=== PATIENT | female | born 1995 | race African-American/Black ===

== ENCOUNTER 2017-01-01 06:07 | Inpatient (IN) | payer OTHER ==
[2017-01-01] MEDS ORDERED: BUTORPHANOL TARTRATE 1 MG/ML VIAL IVPUSH ONE ×2 (06:40→10:15)
[2017-01-01] MEDS ORDERED: PROMETHAZINE HCL 25 MG/1 ML VIAL IVPUSH ONE (06:40)
[2017-01-01 08:28] VITALS: BMI 35.5
[2017-01-01 08:42] LABS: BASOPHIL 0.3 % (0-2.0); EOSINOPHIL 0.2 % (0-4.5); MCH 31.2 pg (25.7-33.7); MCHC 33.9 g/dl (32.0-36.0); MEAN PLT VOLUME 8.7 fl (7.5-11.1); PLATELET COUNT 259 K/MM3 (134-434); RDW 14.2 % (11.6-15.6); WHITE BLOOD COUNT 11.6 K/mm3 (4.0-10.0)
[2017-01-01 09:01] LABS: INR 1.05 (0.82-1.09); PROTHROMBIN TIME (PATIENT) 11.9 SEC (9.98-11.88)
[2017-01-01 09:04] LABS: ACTIVATED PTT 26.6 SECONDS (26.9-34.4)
[2017-01-01 09:09] LABS: ANION GAP 9 (8-16); CO2 23 mmol/L (21-32); CREATININE 0.6 mg/dL (0.55-1.02); GLUCOSE,RANDOM 73 mg/dL (74-106)
[2017-01-01] MEDS: ELECTROLYTE-148 SOLN 1,000 ML IV SCH ×3 (10:00→23:45)
[2017-01-01] MEDS ORDERED: PROMETHAZINE HCL 25 MG/1 ML VIAL IVPB ONE (16:30)
[2017-01-01] MEDS ORDERED: LABETALOL HCL 200 MG TABLET (FP) PO ONE (16:30)
[2017-01-01] MEDS ORDERED: BUTORPHANOL TARTRATE 1 MG/ML VIAL IVPB ONE (16:30)
[2017-01-01 17:20] LABS: URINE APPEARANCE CLOUDY; URINE BILIRUBIN NEGATIVE (NEGATIVE); URINE BLOOD 2+ (NEGATIVE); URINE COLOR YELLOW; URINE GLUCOSE (UA) NEGATIVE (NEGATIVE); URINE KETONE 1+ (NEGATIVE); URINE NITRITE NEGATIVE (NEGATIVE); URINE PROTEIN NEGATIVE (NEGATIVE); URINE UROBILINOGEN NEGATIVE mg/dL (0.2-1.0)
[2017-01-01 17:35] LABS: URIC ACID 3.9 mg/dL (2.6-7.2)
[2017-01-01 17:42] LABS: URINE MUCUS RARE; URINE RBC 1 /hpf (0-3); URINE WBC 52 /hpf (3-5)
--- NOTE | 2017-01-01 21:36 | HP ---
Past Medical History - Primary Care Physician PCP:: Reyes Dickson - Admission Chief Complaint: 40.4 weeks, labor History of Present Illness: 21 yo f g1 po 40.4 weeks, c/o contraction, no rom, no bleeding , cx 3 cm 80 vc - 2 mi, fhr cat 1, irregular contraction History Source: Patient Limitations to Obtaining History: No Limitations - Past Medical History ...: 1 ...Para: 0 ...Term: 0 ...: 0 ...Spon : 0 ...Induced : 0 ...Multiple Gestation: 0 ...LMP: 02/26/16 ...EDC by Sono: 12/28/16 - Past Surgical History Hx Myomectomy: No Hx Transabdominal Cerclage: No - Smoking History Smoking history: Never smoked Have you smoked in the past 12 months: No - Alcohol/Substance Use Hx Alcohol Use: No - Social History History of Recent Travel: No Home Medications - Allergies Allergies/Adverse Reactions: Allergies Allergy/AdvReac Type Severity Reaction Status Date / Time No Known Allergies Allergy Verified 01/01/17 08:31 - Home Medications Home Medications: Ambulatory Orders Ferrous Sulfate [Feosol] 325 mg PO DAILY 01/01/17 Vit No.130/Iron/FA [ Tablet] 1 tab PO DAILY 01/01/17 Review of Systems - Review of Systems Constitutional: reports: No Symptoms Eyes: reports: No Symptoms HENT: reports: No Symptoms Neck: reports: No Symptoms Cardiovascular: reports: No Symptoms Respiratory: reports: No Symptoms Gastrointestinal: reports: No Symptoms Genitourinary: reports: No Symptoms Breasts: reports: No Symptoms Reported Integumentary: reports: No Symptoms Neurological: reports: No Symptoms Hematology/Lymphatic: reports: No Symptoms Psychiatric: reports: No Symptoms Physical Exam - Maternity Vital Signs: Vital Signs Temperature 98.6 F 01/01/17 18:00 Pulse Rate 88 01/01/17 21:00 Respiratory Rate 18 01/01/17 21:00 Blood Pressure 123/72 01/01/17 21:00 O2 Sat by Pulse Oximetry (%) Constitutional: Yes: Well Nourished, No Distress, Calm Eyes: Yes: WNL, Conjunctiva Clear, EOM Intact HENT: Yes: WNL, Atraumatic, Normocephalic Neck: Yes: WNL, Supple, Trachea Midline Cardiovascular: Yes: WNL, Regular Rate and Rhythm Breast(s): Yes: WNL - Abdominal Exam/OB Number of Fetuses: Single Presentation: Vertex Contractions: Yes Regularity: Irregular Intensity: Mod/Strong Monitor Mode: External Heart Rate Location: [facility] Category: I Accelerations: Uniform Decelerations: None - Vaginal Exam/OB Speculum Exam: No Dilatation (cm): 3 cm Effacement (%): 80 Amniotic Membrane Status: Intact Presentation: Vertex/Position Station: -2 - Physical Exam Musculoskeletal: Yes: WNL Extremities: Yes: WNL Edema: LLE: Trace, RLE: Trace Deep Tendon Reflex Grade: Normal +2 Psychiatric: Yes: Alert - Labs Lab Results: CBC, BMP 01/01/17 08:30 01/01/17 08:30 Hemorrhage Risk Assessment - Risk Factors Medium Risk Factors: Yes: None High Risk Factors: Yes: None Risk Score: 1 Risk Level: Medium Risk Problem List - Problems (1) Post term over 40 weeks Code(s): O48.0 - POST-TERM (2) Labor established Code(s): [id number] - Assessment/Plan admit, GBS negative , fhr cat 1, fhm, pain management ,
--- NOTE | 2017-01-01 21:37 | PN ---
Progress Note (short form) - Note Progress Note: 7pm srom, cx 6 cm 80 vx -1 clear fluid , fhr cat 1 tracing Problem List - Problems (1) Post term over 40 weeks Code(s): O48.0 - POST-TERM (2) Labor established Code(s): [id number] -
--- NOTE | 2017-01-01 21:38 | PN ---
Progress Note (short form) - Note Progress Note: cx 7 cm 80 vx -1 mr, clear, fhr cat 1 Problem List - Problems (1) Post term over 40 weeks Code(s): O48.0 - POST-TERM (2) Labor established Code(s): [id number] -
[2017-01-01 22:44] LABS: URINE LEUK ESTERASE 2+ (NEGATIVE)
[2017-01-02] MEDS ORDERED: FENTANYL/BUPIVACAINE/NS/PF - PCEA - 50 ML DISP.SYRIN EP SCH (01:15)
--- NOTE | 2017-01-02 01:16 | PN ---
Progress Note (short form) - Note Progress Note: cx 8 cm 100 vx -1 mr , for bag felt arom, fhr cat 1, irregular contraction after receiving epidural , pitocin rba discussed and advised .agreed Problem List - Problems (1) Post term over 40 weeks Code(s): O48.0 - POST-TERM (2) Labor established Code(s): [id number] -
[2017-01-02] MEDS ORDERED: OXYTOCIN 15 UNITS/ LR 250 ML 15 UNIT/250 ML INFUS.BAG IV ONE (01:22)
--- NOTE | 2017-01-02 07:06 | PN ---
Progress Note (short form) - Note Progress Note: 4 .05 am cx 9 cm 100 vx 0 mr , fhr cat 1, contraction regular, scalp electrode applied , palced on LT side Problem List - Problems (1) Post term over 40 weeks Code(s): O48.0 - POST-TERM (2) Labor established Code(s): [id number] -
[2017-01-02] MEDS ORDERED: METHYLERGONOVINE MALEATE 0.2 MG/1 ML AMP IM PRN (08:11)
[2017-01-02] MEDS ORDERED: BENZOCAINE 28 GM HEMORRHOIDAL OINTMENT TP PRN (08:11)
[2017-01-02] MEDS ORDERED: oxyCODONE HCL 5 MG TABLET PO PRN (08:11)
[2017-01-02] MEDS ORDERED: WITCH HAZEL 50% (TUCKS) 40 PAD/JAR PAD TP PRN (08:11)
[2017-01-02] MEDS ORDERED: IBUPROFEN 600 MG TABLET (FP) PO PRN (08:11)
[2017-01-02] MEDS ORDERED: ACETAMINOPHEN 325 MG TABLET (FP) PO PRN (08:11)
[2017-01-02] MEDS ORDERED: BISACODYL 10 MG SUPP.RECT RC PRN (08:11)
[2017-01-02] MEDS ORDERED: BENZOCAINE 20% 57 GM BOTTLE TP PRN (08:11)
[2017-01-02] MEDS ORDERED: OXYTOCIN 20 UNITS in 0.9% NS 20 UNIT/1,000 ML INFUS.BAG IV SCH (08:15)
--- NOTE | 2017-01-02 08:15 | PN ---
Progress Note (short form) - Note Progress Note: cx full head delivered , nasopharynx suctioned ant and post, shoulder with no difficulty , baby girl 9/10. blood,no complication, cord blood gases done , due to thin cord arterial was not sufficient , venous send, i cm vaginal mucosa laceration with one suture of 2.0 chromic, palcenta complete, ebl 300cc Problem List - Problems (1) Post term over 40 weeks Code(s): O48.0 - POST-TERM (2) Labor established Code(s): [id number] -
[2017-01-02 09:02] LABS: VENOUS BLOOD GAS HCO3 22.4 meq/L (19-25); VENOUS PH 7.36 (7.32-7.42)
[2017-01-02] MEDS: PRENATAL VITAMINS W/ FOLIC ACID TABLET (FP) PO SCH (10:16)
[2017-01-02] MEDS: FERROUS SO4 325 MG TABLET (FP) PO SCH ×2 (10:16→21:42)
[2017-01-03 08:18] LABS: BASOPHIL 0.3 % (0-2.0); EOSINOPHIL 0.8 % (0-4.5); MCH 31.3 pg (25.7-33.7); MCHC 33.2 g/dl (32.0-36.0); MEAN CELL VOLUME 94.3 fl (80-96); NEUTROPHILS 74.6 % (42.8-82.8); PLATELET COUNT 214 K/MM3 (134-434); RDW 14.5 % (11.6-15.6); WHITE BLOOD COUNT 14.7 K/mm3 (4.0-10.0)
[2017-01-03] MEDS: PRENATAL VITAMINS W/ FOLIC ACID TABLET (FP) PO SCH (09:52)
[2017-01-03] MEDS: FERROUS SO4 325 MG TABLET (FP) PO SCH ×2 (09:52→21:14)
--- NOTE | 2017-01-03 16:01 | PN ---
Progress Note (short form) - Note Progress Note: ppd 1 doing well, no c/o voids ok CBC, BMP 01/03/17 07:00 01/01/17 08:30 Last Vital Signs Temp Pulse Resp BP Pulse Ox 98.3 F 84 18 114/73 97 01/03/17 14:06 01/03/17 14:06 01/03/17 14:06 01/03/17 14:06 01/02/17 01:00 abdomen soft, uterus rm, non tender no excess vaginal bleeding no calf tenderness plan ambulte. observe Problem List - Problems (1) Post term over 40 weeks Code(s): O48.0 - POST-TERM (2) Labor established Code(s): [id number] -
[2017-01-03] MEDS ORDERED: SENNOSIDES/DOCUSATE COMBO (SENNA PLUS) TABLET (UD) PO PRN (22:00)
--- NOTE | 2017-01-04 08:15 | DS ---
Physical Exam-SURVEY RODMAN Vital Signs: Vital Signs Temperature 98.1 F 01/03/17 19:41 Pulse Rate 97 H 01/03/17 19:41 Respiratory Rate 20 01/03/17 19:41 Blood Pressure 118/74 01/03/17 19:41 O2 Sat by Pulse Oximetry (%) 97 01/02/17 01:00 Constitutional: Yes: Well Nourished, No Distress, Calm Eyes: Yes: WNL, Conjunctiva Clear, EOM Intact HENT: Yes: WNL, Atraumatic, Normocephalic Neck: Yes: WNL, Supple, Trachea Midline Cardiovascular: Yes: WNL, Regular Rate and Rhythm Respiratory: Yes: WNL, Regular, CTA Bilaterally Gastrointestinal: Yes: WNL ...Rectal Exam: Yes: WNL Renal/: Yes: WNL External Genitalia: Yes: Normal ....Post : Yes: Uterus firm, Uterus non-tender, Slight lochia rubra Breast(s): Yes: WNL Musculoskeletal: Yes: WNL Extremities: Yes: WNL Integumentary: Yes: WNL Neurological: Yes: WNL, Alert, Oriented ...Motor Strength: WNL Psychiatric: Yes: WNL, Alert, Oriented Labs: CBC, BMP 01/03/17 07:00 01/01/17 08:30 Delivery - Delivery Vaginal Delivery: Spontaneous (no complication) Type of Anesthesia: Epidural Episiotomy/Laceration: Perineal Extension/lac, 1st degree EBL (cc): 300 Delivery, Single - Stages of Labor Date 1st Stage Initiatied: 01/02/17 Time 1st Stage Initiated: 20:00 Date 2nd Stage Initiated: 01/02/17 Time 2nd Stage Initiated: 07:30 Date of Delivery: 01/02/17 Time of Delivery: 07:56 Time Placenta Delivered: 08:00 - 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 no intercourse, follow up [facility] care 4 weeks, cont pnv Referrals: Reyes Dickson MD [Staff Physician] - Disposition: HOME - Home Medications Comprehensive Discharge Medication List: Ambulatory Orders Ferrous Sulfate [Feosol] 325 mg PO DAILY 01/01/17 Vit No.130/Iron/FA [ Tablet] 1 tab PO DAILY 01/01/17 Ibuprofen [Motrin -] 600 mg PO QID #28 tablet 01/04/17
[2017-01-04] MEDS: PRENATAL VITAMINS W/ FOLIC ACID TABLET (FP) PO SCH (10:14)
[2017-01-04] MEDS: FERROUS SO4 325 MG TABLET (FP) PO SCH (10:14)
[2017-01-04 10:50] VITALS: BP 118/69; PULSE 75; TEMP 97.8
== END 2017-01-04 10:53 | disposition home or self-care (01) | DRG 775 ==
LOC: JDEL 06:07 → JLDR 06:45 → J3W 01-02 09:29
PROVIDERS: ADMIT Obstetrics & Gynecology; ATTEND Obstetrics & Gynecology
PROC: 10E0XZZ Delivery of Products of Conception, External Approach (ICD-10-PCS; principal; 2017-01-02)
PROC: 0W8NXZZ Division of Female Perineum, External Approach (ICD-10-PCS; 2017-01-02)
PROC: 0HQ9XZZ Repair Perineum Skin, External Approach (ICD-10-PCS; 2017-01-02)
DX: O70.0 First degree perineal laceration during delivery (principal); O48.0 Post-term pregnancy; Z3A.40 40 weeks gestation of pregnancy; Z37.0 Single live birth
CPT/HCPCS: 36415; 59409; 80048; 81003; 81015; 82803; 82977; 83010; 84450; 84460; 84550; 85025; 85044; 85610; 85730; 86593; 86850; 86900; 86901

== ENCOUNTER 2018-08-27 07:08 | Inpatient (IN) | payer OTHER ==
[2018-08-27] MEDS ORDERED: PROMETHAZINE HCL 25 MG/1 ML VIAL IVPUSH ONE (08:37)
[2018-08-27] MEDS ORDERED: BUTORPHANOL TARTRATE 1 MG/ML VIAL IVPB ONE (08:37)
[2018-08-27] MEDS ORDERED: ELECTROLYTE-148 SOLN 1,000 ML IV SCH (08:45)
[2018-08-27] MEDS ORDERED: OXYTOCIN 30 UNITS in 0.9% NS 30 UNIT/500 ML INFUS.BAG IVPB SCH (08:45)
[2018-08-27 09:27] VITALS: BMI 32.6
[2018-08-27] MEDS ORDERED: OXYTOCIN 30 UNITS in 0.9% NS 30 UNIT/500 ML INFUS.BAG IVPB ONE (09:38)
[2018-08-27 11:03] LABS: BASO % 0.4 % (0-2.0); HEMATOCRIT 27.4 % (32.4-45.2); HEMOGLOBIN 9.2 GM/dL (10.7-15.3); LYMPH % 23.1 % (8-40); MCH 30.3 pg (25.7-33.7); MCHC 33.6 g/dl (32.0-36.0); MEAN CELL VOLUME 90.1 fl (80-96); MEAN PLT VOLUME 8.9 fl (7.5-11.1); NEUT % 67.5 % (42.8-82.8); RBC 3.04 M/mm3 (3.60-5.2); RDW 14.6 % (11.6-15.6); WHITE BLOOD COUNT 7.8 K/mm3 (4.0-10.0)
[2018-08-27 11:10] LABS: PLATELET COUNT 241 K/MM3 (134-434)
[2018-08-27 11:27] LABS: BLOOD UREA NITROGEN 5.3 mg/dL (7-18); CALCIUM 8.7 mg/dL (8.5-10.1); CREATININE 0.6 mg/dL (0.55-1.3); INR 1.05 (0.83-1.09); POTASSIUM 3.7 mmol/L (3.5-5.1); PROTHROMBIN TIME (PATIENT) 12.4 SEC (9.7-13.0)
[2018-08-27 11:31] LABS: RPR NONREACTIVE (NONREACTIVE)
[2018-08-27] MEDS ORDERED: FENTANYL/BUPIVACAINE/NS/PF - PCEA - 50 ML DISP.SYRIN EP ONE (15:21)
[2018-08-27] MEDS ORDERED: FENTANYL/BUPIVACAINE/NS/PF - PCEA - 50 ML DISP.SYRIN EP SCH ×2 (16:30→18:15)
[2018-08-27] MEDS ORDERED: NALOXONE HCL 0.4 MG/ML VIAL IVPUSH PRN (18:06)
--- NOTE | 2018-08-27 18:24 | HP ---
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: Alzheimer's, CVA, Dementia, Migraine, Multiple Sclerosis, Peripheral Neuropathy, Parkinson's, Seizure, Syncope, TIA, Vertigo, Other Cardiovascular: No: AFIB, Aneurysm, Aortic Insufficiency, Aortic Stenosis, CAD, CHF, Deep Vein Thrombosis, HTN, Hyperlipdemia, [place], Mitral Insufficiency, Mitral Stenosis, Murmur, Pulmonary Hypertension, Other Pulmonary: No: Asthma, Bronchitis, Cancer, COPD, O2 Dependent, Pneumonia, Previously Intubated, Pulmonary Embolus, Pulmonary Fibrosis, Sleep Apnea, Other Gastrointestinal: No: Ascites, Cancer, Constipation, Crohn's Disease, Diverticulitis, Diverticulosis, Esophageal Varices, Gastritis, GERD, GI Bleed, Hemorrhoids, Hiatal Hernia, Inflamatory Bowel Disease, Irritable Bowel Disease, Pancreatitis, Peptic Ulcer Disease, Ulcerative Colitis, Other Hepatobiliary: No: Cirrhosis, Cholelithiasis, Cholecystitis, Choledocholithiasis , Hepatitis A, Hepatitis B, Hepatitis C, Other Renal/: No: Renal Failure, Renal Inusuff, BPH, Cancer, Hematuria, Hemodialysis , Neurogenic Bladder, Renal Calculi, UTI, Other Reproductive: No: Ectopic , Endometriosis, Fibroids, PID, Polycystic Ovary Syndrome, Postmenopausal, Other ...: 2 ...Para: 1 ...Term: 1 ...: 0 ...Spon : 0 ...Induced : 0 ...Multiple Gestation: 0 ... Weeks Gestation by Dates: 41 ...EDC by Kierra: 08/17/18 Heme/Onc: No: Anemia, B12 Deficiency, Bleeding Disorder, Cancer, Current Chemotherapy, Current Radiation Therapy, Hemochromatosis, Hypercoaguable State, Myeloproliferative Synd, Sickle Cell Disease, Sickle Cell Trait, Thrombocytopenia, Other Infectious Disease: No: AIDS, C-Diff, Herpes Zoster, HIV, MRSA, STD's, Tuberculosis, VREF, Other Psych: No: Addictions, Anxiety, Bipolar, Depression, Panic, Psychosis, Schizophrenia, Other Musculoskeletal: No: Bursitis, Chronic low back pain, Hemiparesis, Hemiplegia, Osteoarthritis, Paraplegia, Other Rheumatology: No: Fibromyalgia, Gout, Lupus, Rheumatoid Arthritis, Sarcoidosis, Vasculitis, Other ENT: No: Allergic Rhinitis, Sinusitis, Other Endocrine: No: [place]'s Disease, [place]'s Disease, Diabetes Insipidus, Diabetes Mellitus, Hyperparathyroidism, Hyperthyroidism, Hypothyroidism, Osteopenia, SIADH, Other Dermatology: No: Basal Cell, Cellulitis, Eczema, Melanoma, Psoriasis, Squamous Cell, Other - Past Surgical History Past Surgical History: No: None, AAA Repair, AICD, Amputation, Appendectomy, Arthrosocopy, AV Fistula/Graft, Bariatric Surgery, Breast Biopsy, Bypass, CABG, Carotid Endarterectomy, Cataract Removal, Cholecystectomy, Colectomy, Colonoscopy, Colostomy, Craniotomy, , Cystectomy, Hernia Repair, Hysterectomy, Ileal Conduit, Ileosotomy, Joint Replacement, Kidney Transplant, Laminectomy, Liver Transplant, Mastectomy, Nephrectomy, Oopherectomy, Orchiectomy, Permanent Pacemaker, Prostatectomy, Splenectomy, Stent, Thoracotomy , TURP, Tonsillectomy, Tubal Ligation, Upper Endoscopy, Valve Replacement, Vasectomy, Vein Stripping/Ligation Hx Myomectomy: No Hx Transabdominal Cerclage: No - Advance Directives Advance Directives: No: Living Will, Health Care Proxy, DNR, Organ Donor, Tissue Donor, MOLST - Smoking History Smoking history: Never smoked Have you smoked in the past 12 months: No - Alcohol/Substance Use Hx Alcohol Use: No History of Substance Use: reports: None - Social History Usual Living Arrangement: Yes: With Spouse ADL: Independent History of Recent Travel: No Home Medications - Allergies Allergies/Adverse Reactions: Allergies Allergy/AdvReac Type Severity Reaction Status Date / Time No Known Allergies Allergy Verified 01/01/17 08:31 - Home Medications Home Medications: Ambulatory Orders Ferrous Sulfate [Feosol] 325 mg PO DAILY 01/01/17 Vit No.130/Iron/Folic [ Tablet] 1 tab PO DAILY 01/01/17 Family Disease History - Family Disease History Family History: Denies Review of Systems - Review of Systems Constitutional: reports: No Symptoms Eyes: reports: No Symptoms HENT: reports: No Symptoms Neck: reports: No Symptoms Cardiovascular: reports: No Symptoms Respiratory: reports: No Symptoms Gastrointestinal: reports: No Symptoms Genitourinary: reports: No Symptoms Breasts: reports: No Symptoms Reported Musculoskeletal: reports: No Symptoms Integumentary: reports: No Symptoms Neurological: reports: No Symptoms Endocrine: reports: No Symptoms Hematology/Lymphatic: reports: No Symptoms Psychiatric: reports: No Symptoms Pain Intensity: 0 Physical Exam - Maternity Vital Signs: Vital Signs Temperature 97.7 F 08/27/18 14:00 Pulse Rate 72 08/27/18 14:00 Respiratory Rate 20 08/27/18 14:00 Blood Pressure 121/74 08/27/18 14:00 O2 Sat by Pulse Oximetry (%) Constitutional: Yes: Well Nourished, No Distress, Calm Eyes: Yes: WNL, Conjunctiva Clear, EOM Intact HENT: Yes: WNL, Atraumatic, Normocephalic Neck: Yes: WNL, Supple, Trachea Midline Cardiovascular: Yes: WNL, Regular Rate and Rhythm Lungs: Clear to auscultation Breast(s): Yes: WNL - Abdominal Exam/OB Fundal Height: 40 Number of Fetuses: Single Presentation: Vertex Contractions: Yes Regularity: Irregular Intensity: Mild Monitor Mode: External Heart Rate Location: [facility] Category: I Accelerations: Uniform Decelerations: None - Vaginal Exam/OB Vaginal Bleediing: No Speculum Exam: No Dilatation (cm): 2 Effacement (%): 70 Amniotic Membrane Status: Intact Presentation: Vertex/Position Station: -2 - Physical Exam Musculoskeletal: Yes: WNL Extremities: Yes: WNL Edema: Yes Edema: LUE: 1+, RUE: 1+, LLE: 1+, RLE: 1+ Integumentary: Yes: WNL Deep Tendon Reflex Grade: Normal +2 ...Motor Strength: WNL Psychiatric: Yes: WNL, Alert, Oriented - Labs Lab Results: CBC, BMP 08/27/18 10:35 08/27/18 10:35 Hemorrhage Risk Assessment - Risk Factors Risk Score: 0 Risk Level: Low Risk Assessment/Plan post date for inductiuon
--- NOTE | 2018-08-27 18:25 | PN ---
Progress Note (short form) - Note Progress Note: 1pm , arom, light meconium, 23 cm, 70%, -2, uc q 5 m , nst cat 1, continue pitocin
[2018-08-27] MEDS ORDERED: OXYTOCIN 20 UNITS in 0.9% NS 20 UNIT/1,000 ML INFUS.BAG IV ONE (18:30)
[2018-08-27] MEDS: OXYTOCIN 20 UNITS in 0.9% NS 20 UNIT/1,000 ML INFUS.BAG IV SCH (18:40)
--- NOTE | 2018-08-27 19:02 | PN ---
Progress Note (short form) - Note Progress Note: 5 pm 6cm, 80%, -1, asking for more epidural, uc q 5 min, cat 1 nst ,
--- NOTE | 2018-08-27 19:06 | PN ---
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
[2018-08-27] MEDS ORDERED: WITCH HAZEL 50% (TUCKS) 40 PAD/JAR PAD TP PRN (19:07)
[2018-08-27] MEDS ORDERED: METHYLERGONOVINE MALEATE 0.2 MG/1 ML AMP IM PRN (19:07)
[2018-08-27] MEDS ORDERED: BISACODYL 10 MG SUPP.RECT RC PRN (19:07)
[2018-08-27] MEDS ORDERED: BENZOCAINE 20% 57 GM BOTTLE TP PRN (19:07)
[2018-08-27] MEDS ORDERED: BENZOCAINE 28 GM HEMORRHOIDAL OINTMENT TP PRN (19:07)
[2018-08-27] MEDS ORDERED: oxyCODONE HCL 5 MG TABLET PO PRN (19:07)
[2018-08-27] MEDS: ACETAMINOPHEN 325 MG TABLET (FP) PO PRN (23:14)
[2018-08-27] MEDS: IBUPROFEN 600 MG TABLET (FP) PO PRN (23:14)
[2018-08-28] MEDS: OXYTOCIN 20 UNITS in 0.9% NS 20 UNIT/1,000 ML INFUS.BAG IV SCH (00:15)
[2018-08-28 08:28] LABS: BASO % 0.3 % (0-2.0); EOS % 0.5 % (0-4.5); HEMOGLOBIN 10.1 GM/dL (10.7-15.3); LYMPH % 18.5 % (8-40); MCH 29.9 pg (25.7-33.7); MCHC 32.7 g/dl (32.0-36.0); MEAN CELL VOLUME 91.3 fl (80-96); MEAN PLT VOLUME 9.5 fl (7.5-11.1); MONO % 6.8 % (3.8-10.2); NEUT % 73.9 % (42.8-82.8); PLATELET COUNT 237 K/MM3 (134-434); RBC 3.39 M/mm3 (3.60-5.2); RDW 14.6 % (11.6-15.6); WHITE BLOOD COUNT 11.3 K/mm3 (4.0-10.0)
[2018-08-28] MEDS: ACETAMINOPHEN 325 MG TABLET (FP) PO PRN ×2 (11:36→21:56)
[2018-08-28] MEDS: IBUPROFEN 600 MG TABLET (FP) PO PRN ×2 (11:37→21:57)
--- NOTE | 2018-08-28 16:07 | PN ---
Post Progress Note Post Day: 1 Type of Delivery: Vital Signs: Vital Signs Temperature 98.6 F 08/28/18 09:00 Pulse Rate 82 08/28/18 09:00 Respiratory Rate 20 08/28/18 09:00 Blood Pressure 119/69 08/28/18 09:00 O2 Sat by Pulse Oximetry (%) 100 08/27/18 20:45 Breast Exam: Yes: Soft Uterus: Yes: Fundus Firm, Fundus below umbilicus Abdomen/GI: Yes: Abdomen soft, Passing flatus, Tolerating PO Lochia: Yes: Serosa Lochia, amount: Small Extremities: Yes: Calves non-tender Perineum: Yes: Laceration Activity: Ambulating - Labs Labs: CBC WBC 11.3 K/mm3 (4.0-10.0) H 08/28/18 07:15 RBC 3.39 M/mm3 (3.60-5.2) L 08/28/18 07:15 Hgb 10.1 GM/dL (10.7-15.3) L 08/28/18 07:15 Hct 31.0 % (32.4-45.2) L 08/28/18 07:15 MCV 91.3 fl (80-96) 08/28/18 07:15 MCH 29.9 pg (25.7-33.7) 08/28/18 07:15 MCHC 32.7 g/dl (32.0-36.0) 08/28/18 07:15 RDW 14.6 % (11.6-15.6) 08/28/18 07:15 Plt Count 237 K/MM3 (134-434) 08/28/18 07:15 MPV 9.5 fl (7.5-11.1) 08/28/18 07:15 Absolute Neuts (auto) 8.3 K/mm3 (1.5-8.0) H 08/28/18 07:15 Neutrophils % 73.9 % (42.8-82.8) 08/28/18 07:15 Lymphocytes % 18.5 % (8-40) 08/28/18 07:15 Monocytes % 6.8 % (3.8-10.2) 08/28/18 07:15 Eosinophils % 0.5 % (0-4.5) 08/28/18 07:15 Basophils % 0.3 % (0-2.0) 08/28/18 07:15 Nucleated RBC % 0 % (0-0) 08/28/18 07:15 Assessment/Plan dc pt home tomorrow
--- NOTE | 2018-08-28 16:09 | DS ---
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 Vital Signs: Vital Signs Temperature 98.6 F 08/28/18 09:00 Pulse Rate 82 08/28/18 09:00 Respiratory Rate 20 08/28/18 09:00 Blood Pressure 119/69 08/28/18 09:00 O2 Sat by Pulse Oximetry (%) 100 08/27/18 20:45 Constitutional: Yes: Well Nourished, No Distress, Calm Eyes: Yes: WNL, Conjunctiva Clear, EOM Intact HENT: Yes: WNL, Atraumatic, Normocephalic Neck: Yes: WNL, Supple, Trachea Midline Cardiovascular: Yes: WNL, Regular Rate and Rhythm Respiratory: Yes: WNL, Regular, CTA Bilaterally Gastrointestinal: Yes: WNL, Normal Bowel Sounds, Soft ...Rectal Exam: Yes: WNL Renal/: Yes: WNL Pelvis: Yes: WNL External Genitalia: Yes: Normal Internal Exam Deferred: No Vaginal Exam: Yes: Normal Cervix: Yes: Normal Uterus: Yes: Normal Adnexa: Normal: Bilateral ....Post : Yes: Uterus firm, Uterus non-tender Breast(s): Yes: WNL Musculoskeletal: Yes: WNL Extremities: Yes: WNL Edema: Yes Edema: LUE: 1+, RUE: 1+, LLE: 1+, RLE: 1+ Integumentary: Yes: WNL Wound/Incision: Yes: Clean/Dry, Well Approximated Neurological: Yes: WNL, Alert, Oriented ...Motor Strength: WNL Psychiatric: Yes: WNL, Alert, Oriented Labs: CBC, BMP 08/28/18 07:15 08/27/18 10:35 Delivery - Delivery Vaginal Delivery: No Problems Type of Anesthesia: Epidural Episiotomy/Laceration: 1st degree EBL (cc): 200 Delivery, Single - Stages of Labor Date 1st Stage Initiatied: 08/27/18 Time 1st Stage Initiated: 08:00 Date 2nd Stage Initiated: 08/27/18 Time 2nd Stage Initiated: 17:25 Date of Delivery: 08/27/18 Time of Delivery: 18:33 Time Placenta Delivered: 18:40 Placenta: Yes: Spontaneous - 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 Present: [place]: AndryTrippsergiolana Gender: Female Weight: 3.515 kg Position: Right, OA Total Hours ROM (Hrs/Mins): 5hrs 40 min - 1 Minute Total Score: 9 5 Minutes Total Score: 9 - [place] Feeding Plan Initial Plan: Elected not to breastfeed exclusively throughout hospitalization Benefits of Exclusively reinforced: Yes Discharge Summary Reason For Visit: INDUCTION OF LABOR Condition: Stable - Instructions Diet, Activity, Other Instructions: regular - Home Medications Comprehensive Discharge Medication List: Ambulatory Orders Ferrous Sulfate [Feosol] 325 mg PO DAILY 01/01/17 Vit No.130/Iron/Folic [ Tablet] 1 tab PO DAILY 01/01/17
[2018-08-28] MEDS ORDERED: SENNOSIDES/DOCUSATE COMBO (SENNA PLUS) TABLET (UD) PO PRN (22:00)
[2018-08-29] MEDS: ACETAMINOPHEN 325 MG TABLET (FP) PO PRN (12:28)
[2018-08-29] MEDS: IBUPROFEN 600 MG TABLET (FP) PO PRN (12:29)
[2018-08-29 13:03] VITALS: BP 133/76; PULSE 87; TEMP 99.1
== END 2018-08-29 13:00 | disposition home or self-care (01) | DRG 807 ==
LOC: JLDR 07:08 → J3W 21:02
PROVIDERS: ADMIT Obstetrics & Gynecology; ATTEND Obstetrics & Gynecology
PROC: 10E0XZZ Delivery of Products of Conception, External Approach (ICD-10-PCS; principal; 2018-08-27)
PROC: 0HQ9XZZ Repair Perineum Skin, External Approach (ICD-10-PCS; 2018-08-27)
PROC: 3E033VJ Introduction of Other Hormone into Peripheral Vein, Percutaneous Approach (ICD-10-PCS; 2018-08-27)
PROC: 3E0R3BZ Introduction of Anesthetic Agent into Spinal Canal, Percutaneous Approach (ICD-10-PCS; 2018-08-27)
DX: O48.0 Post-term pregnancy (principal); Z37.0 Single live birth; O70.0 First degree perineal laceration during delivery; Z3A.40 40 weeks gestation of pregnancy
CPT/HCPCS: 36415; 59409; 80048; 85025; 85610; 85730; 86593; 86850; 86900; 86901; 87389